=== PATIENT | male | born 1965 | race Caucasian/White ===

== ENCOUNTER 2022-07-12 08:53 | Emergency (ER) | payer OTHER, SELFPAY ==
--- NOTE | ~2022-07-12 | XR_ITS ---
XR ankle LT min 3V DATE: 07/12/2022 09:15 INDICATION: Left ankle pain after rolling the ankle yesterday TECHNIQUE: 4 views COMPARISON: None FINDINGS: There is prominent lateral soft tissue swelling of the ankle. No fracture or dislocation of the ankle or disruption of the ankle mortise is detected. 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 Plantar calcaneal enthesopathy. IMPRESSION: Prominent lateral soft tissue swelling; no fracture or dislocation Reviewed, dictated and finalized at location A.
[2022-07-12 09:04] VITALS: BP 125/87; PULSE 67; RESP 16; TEMP 36.2; O2SAT 99
--- NOTE | 2022-07-12 09:04 | ED.LOWEXIN ---
HPI - Extremity Injury (Lower) General Chief Complaint: Extremity Injury, Lower Stated Complaint: left foot swollen Time Seen by Provider: 07/12/22 09:04 Source: patient, RN notes reviewed and old records reviewed Mode of arrival: ambulatory Limitations: no limitations History of Present Illness HPI Narrative: 57-year-old male presents to the [facility] with left ankle pain and swelling. States that he rolled his ankle yesterday. States he took Aleve yesterday. History of anxiety depression Onset (ago): day(s) (1) Related Data Allergies Allergy/AdvReac Type Severity Reaction Status Date / Time No Known Allergies Allergy Verified 07/12/22 09:10 Review of Systems Review of Systems: All systems reviewed & are unremarkable except as noted in HPI and below Constitutional: Constitutional: Reports no additional constitutional complaints Eyes: Eyes: Reports no additional eye complaints ENT: Reports system reviewed and no additional complaints, except as documented Cardiovascular: Cardiovascular: Reports no additional cardiovascular complaints, Denies chest pain and Denies dyspnea Respiratory: Respiratory: Reports no additional respiratory complaints, Denies chest congestion, Denies cough and Denies dyspnea Gastrointestinal: Gastrointestinal: Reports no additional gastrointestinal complaints, Denies abdominal pain, Denies nausea and Denies vomiting Musculoskeletal: Musculoskeletal: Reports as per HPI, Reports arthralgias and Reports joint swelling Integumentary/Breasts: Skin/Breast: Reports system reviewed and no additional complaints, except as docu Neurologic: Reports system reviewed and no additional complaints, except as documented Psychiatric: Psychiatric: Reports no additional psychiatric complaints Allergic/Immunologic: Allergic/Immunologic: Reports no additional allergic/immunologic complaints FORMERLY [facility], 1928–1983 Past Medical History Medical History (Updated 07/12/22 @ 09:29 by Lisa Fernandez APRN) Anxiety and depression Comments At the time of my signature, I reviewed and agree with the nursing past medical, surgical, social, and family history. There is no relevant family history pertinent to the patient complaint. Exam Const: General: cooperative, healthy appearing, comfortable, no acute distress, well developed, alert and well nourished Nutritional Appearance: well nourished Orientation/consciousness: patient oriented x3 Limitations: no limitations HENMT: Head: normal to inspection Ears: hearing grossly normal bilaterally and external ears normal Face/Nose/Sinus: Normal external nose present, Normal nares present, Normal nasal mucous membranes and turbinates present and normal facial exam Face and sinus: normal facial exam Mouth: Yes Normal oral and palatal mucosa present, Yes lip normal and Yes moist mucous membranes Throat: posterior oropharynx normal and uvula midline Eyes: General: appearance normal, both eyes and all related structures Alignment and Position: alignment normal Periorbital: periorbital findings normal Pupils: Equal, round and reactive pupils present EOM: EOMs intact bilaterally Neck: Neck: normal visual inspection, full ROM, no lymphadenopathy and no meningeal signs Chest: Chest palpation & inspection: normal inspection of the chest Resp: Effort & Inspection: normal respiratory effort and able to speak in complete sentences Cardio: Rate: regular rate Rhythm: regular rhythm Back/Spine/Pelvis: Cervical Spine: cervical ROM normal Thoracic/Lumbar Spine: No thoracic spinal tenderness Skin: General skin exam: normal color and no rashes or lesions noted Lesions: no lesions Rashes: no rashes Wounds: no wounds Neuro: General: patient oriented x3, gait normal, tone normal, moves all extremities and no meningeal signs Cranial nerves: Yes Equal, round and reactive pupils present Cognition (Neuro): normal cognition Speech: normal speech Gait exam (Neuro): Normal gait present Extrem: G
== END 2022-07-12 09:32 | disposition home or self-care (01) ==
PROVIDERS: Emergency Provider Nurse Practitioner; PCP Family Medicine
DX: S93.402A Sprain of unspecified ligament of left ankle, initial encounter (principal); X50.9XXA Other and unspecified overexertion or strenuous movements or postures, initial encounter; F41.9 Anxiety disorder, unspecified; F32.A Depression, unspecified
CPT/HCPCS: 73610; 99213; G0463

== ENCOUNTER 2023-02-13 17:07 | Emergency (ER) | payer OTHER, SELFPAY ==
[2023-02-13 17:37] VITALS: BP 128/81; PULSE 106; RESP 16; TEMP 36.5; O2SAT 97
--- NOTE | 2023-02-13 20:10 | ED.SKABFB ---
HPI - Skin/Abscess/Foreign Bdy General Chief complaint: Skin/Abscess/Foreign Body Stated complaint: boil Time Seen by Provider: 02/13/23 19:35 History of Present Illness HPI narrative: Patient is a 58-year-old male presenting with a boil on his buttocks. He states that he developed an abscess on his right buttocks approximately 4 days ago. He was seen at urgent care a couple of days ago and they incised it and it has been draining since then. They started him on Keflex and told him to come to the ER if it gets worse. States that the redness is now outside of the line that they shalini. States that it still hurts. No nausea or vomiting. No further complaints. Related Data Home Medications Medication Instructions Recorded Confirmed sertraline 100 mg tablet 100 mg PO DAILY 07/12/22 07/12/22 Allergies Allergy/AdvReac Type Severity Reaction Status Date / Time No Known Allergies Allergy Verified 07/12/22 09:10 Review of Systems Review of Systems: All systems reviewed & are unremarkable except as noted in HPI and below PMFSH Past Medical History Medical History Anxiety and depression Exam Narrative: GENERAL: Well-appearing, in no acute distress, pleasant cooperative HEAD: Normocephalic, atraumatic. EYES: PERRLA and EOMI. ENT: Grossly unremarkable NECK: Supple. CHEST: No respiratory distress. HEART: Regular rate and rhythm. EXTREMITIES: Normal range of motion. SKIN: abscess right buttocks that is draining purulent drainage, surrounding erythema, skin marker is drawn around the area and there is erythema spreading outside of this, no crepitus, no extension into the perineum NEURO: No focal deficits. Alert and oriented x3. PSYCH: Normal mood and affect. Course Vital Signs Vital signs: Vital Signs Temperature 97.7 F 02/13/23 17:37 Pulse Rate 106 H 02/13/23 17:37 Respiratory Rate 16 02/13/23 17:37 Blood Pressure 128/81 02/13/23 17:37 Pulse Oximetry 97 02/13/23 17:37 Oxygen Delivery Room Air 02/13/23 17:37 Temperature 97.7 F 02/13/23 17:37 Pulse Rate 106 H 02/13/23 17:37 Respiratory Rate 16 02/13/23 17:37 Blood Pressure 128/81 02/13/23 17:37 Pulse Oximetry 97 02/13/23 17:37 Oxygen Delivery Room Air 02/13/23 17:37 MDM - Skin/Abscess/Foreign Bdy MDM Narrative Medical decision making narrative: 58-year-old male presenting with an abscess to his right buttocks. Vitals are stable. Exam remarkable for the above. It is still draining purulence material. The Urgent Care shalini a line around the erythema and the erythema is extending beyond this. It appears that he was covered with Keflex - will start him on Bactrim for better staph coverage. Advised that he continue to use warm compresses to encourage further drainage. Advised that he follow-up closely with his PCP for wound check. Strict return precautions given. Patient discharged in stable condition. Differential Diagnosis Differential diagnosis: Likely abscess of skin or subcutaneous tissue and cellulitis Medical Records Attestation: I reviewed the patient's medical records. Critical Care Time Critical Care Time Critical Care Time: No Discharge Plan Discharge Clinical Impression: Abscess and cellulitis of gluteal region Patient Disposition: Home, Self-Care Condition: Stable Instructions: Antibiotic Form, Cellulitis (ED), Abscess (ED) Additional Instructions: Please continue to apply warm compresses to encourage drainage from the abscess. We are starting you on a new antibiotic, please finish these as prescribed. If the redness continues to spread despite this antibiotic, please return to the ER. Please follow-up closely with your PCP for a wound check. If you start vomiting, have worsening pain, or other concerning symptoms arise, please return to the ER. Prescriptions: New sulfamethoxazole-trimethoprim [Bactrim DS] 800-160 mg
[2023-02-13] MEDS: SULFAMETHOXAZOLE/TRIMETHOPRIM 800/160 MG DS TABLET 2 TAB PO (21:03)
== END 2023-02-13 21:12 | disposition home or self-care (01) ==
LOC: ANHED 20:37
PROVIDERS: Emergency Provider Emergency Medicine; PCP Family Medicine
DX: L02.31 Cutaneous abscess of buttock (principal); F41.9 Anxiety disorder, unspecified; F32.A Depression, unspecified
CPT/HCPCS: 99283; A9270